=== PATIENT | male | born 1965 | race Hispanic/Latino ===

== ENCOUNTER 2025-05-25 10:16 | Emergency (ER) | payer BC ==
[~2025-05-25] VITALS: Ht 172.7 cm; Wt 101.6 kg
--- NOTE | 2025-05-25 10:32 | EKG ---
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
[2025-05-25 10:45] LABS: IMMATURE GRANULOCYTE ABSOLUTE 0.04 K/uL (0-1); NUCLEATED RED BLOOD CELLS 0.0 % (0.0-0.19); PLATELET COUNT (AUTO) 188 K/uL (130-400); RED BLOOD CELL COUNT(AUTO) 4.80 MIL/uL (4.50-6.20); RED CELL DISTRIBUTION WIDTH 11.9 % (11.0-15.5); WHITE BLOOD COUNT (AUTO) 5.4 K/uL (4.8-10.8)
[2025-05-25] MEDS: LACTATED RINGERS 1000ML 1,000 ML IV ONE (10:47)
[2025-05-25 10:57] LABS: CREATININE 1.0 mg/dL (0.5-1.3); GLOMERULAR FILTR. RATE CALC 86.0 mL/min (>90); GLUCOSE,RANDOM 108.0 mg/dL (70-105); SODIUM SERUM 138.0 mmol/L (136-145); UREA NITROGEN, BLOOD 14.0 mg/dL (7-18)
[2025-05-25 11:03] LABS: CREATINE KINASE, TOTAL 161.0 U/L (21-232)
--- NOTE | 2025-05-25 12:02 | HMCIMG ---
EXAM: CT Head Without IV contrast. CLINICAL HISTORY: dizzy TECHNIQUE: Axial computed tomography images of the head/brain without intravenous contrast. COMPARISON: None provided. FINDINGS: BRAIN: Prominence of cerebral sulci and ventricles suggestive of age related atrophic changes. Chronic small vessel ischaemic changesNo evidence of acute hemorrhage. No mass lesion. No CT evidence for acute territorial infarct. No midline shift or extra-axial collections. VENTRICLES: No hydrocephalus. ORBITS: The orbits are unremarkable. SINUSES AND MASTOIDS: The paranasal sinuses and mastoid air cells are clear. BONES: No fracture. SOFT TISSUES: Unremarkable. IMPRESSION: 1. No acute intracranial findings. /[place]
--- NOTE | 2025-05-25 12:58 | HMCIMG ---
EXAM: CR Chest, 1 View. CLINICAL HISTORY: dizzy COMPARISON: None provided. FINDINGS: LUNGS: The lungs show no infiltrate or other acute finding. PLEURAL SPACES: No evidence of pleural effusion or pneumothorax. MEDIASTINUM: Cardiac size and mediastinal contours within normal limits. BONES: No acute osseous abnormality. IMPRESSION: No acute cardiopulmonary pathology is evident. /[place]
[2025-05-25] MEDS ORDERED: MECL-244 PO (13:05)
--- NOTE | 2025-05-25 13:05 | ERN ---
General Chief Complaint: Dizzy/Light Headed Stated Complaint: DIZZINESS Time Seen by MD: 10:20 History of Present Illness Initial Comments 59-year-old male presents for dizziness. He reports the last night he felt like he was sweating and this morning he woke up feeling dizzy. He describes the dizziness as lightheadedness and "spinning" and "off balance." It increases with a sudden movements. It increases with standing. No headache. No focal neurologic deficits. He denies any chest pain shortness of breath. He has never had this before. No recent illness or infection. No tinnitus. Allergies: Coded Allergies: aspirin (Unverified Allergy, Unknown, 05/25/25) Past Medical History Past Medical History: HIV, Hypertension Past Surgical History: None ROS Dictation CONSTITUTIONAL: No chills, no fever, no weakness, no diaphoresis, no malaise. HEAD/FACE: No signs of trauma. EENT: No eye pain, no blurred vision, no tearing, no double vision, no ear pain, no ear discharge, no nose pain, no nasal congestion, no throat pain, no throat swelling, no mouth pain. RESPIRATORY: No cough, no orthopnea, no SOB, no stridor, no wheezing. CARDIOVASCULAR: No chest pain, no edema, no palpitations, no syncope. GASTROINTESTINAL/ABDOMINAL: No abdominal pain, no constipation, no diarrhea, no nausea, no vomiting. GENITOURINARY: No abnormal discharge, no dysuria, no frequent urination, no hematuria. No complaints of pain in the genitals. MUSCULOSKELETAL: No back pain, no gout, no joint pain, no joint swelling, no muscle pain, no muscle stiffness, no neck pain. INTEGUMENTARY: No change in color, no change in hair/nails, no dryness, no lesion, no lumps, no rash. NEUROLOGICAL/PSYCH: Dizziness HEMATOLOGIC/LYMPHATIC: Not anemic, no history of blood clots, no apparent bleeding, no bruising, glands not swollen. All Systems Negative, Except as Noted. Physical Exam Physical Exam Dictation VITAL SIGNS: Reviewed. GENERAL APPEARANCE: Alert, oriented x3, no acute distress. HEAD AND FACE: Non-traumatic. EYES: PERRL, pink conjunctivas, eyelid no trauma, anterior chamber clear. EARS: Pinnas intact and no signs of trauma or erythema. Ear canals clear and no discharge. TMs no erythema. NOSE: No discharge, no bleeding. OROPHARYNX: Mouth normal, teeth no caries, tongue pink. Pharynx clear, no erythema. Tonsils no exudates, no abscesses noted. Mucous membrane moist. NECK: Supple, non-tender, no thyromegaly, no masses, no JVD, no bruits. BREAST: Deferred. CHEST: No tenderness, no crepitus, no paradoxical movement, no retractions. LUNGS: Clear, well-ventilated, symmetric, no rales, no wheezing, no rhonchi, no stridor, good breath sounds bilaterally. HEART: Regular rate, regular rhythm, no murmur, no gallops. VASCULAR: No peripheral edema. ABDOMEN: Soft, positive bowel sounds, nondistended, no guarding, nontender, no rebound, no masses no hepatomegaly, no splenomegaly, no Mccall's sign, no maribell ias. RECTAL: Deferred. GENITAL: Deferred. NEUROLOGICAL: Normal speech, gross motor function intact, gross sensory function intact. MUSCULOSKELETAL: Neck nontender, full range of motion, back nontender, full range of motion. EXTREMITIES: Nontender, full range of motion. SKIN: Color pink, dry, no turgor, no rash, no lacerations, no abrasions, no contusions. LYMPHATICS: Deferred. Results Laboratory and Microbiology Lab and Micro Result Laboratory Tests Test 05/25/25 10:36 White Blood Count 5.4 K/uL (4.8-10.8) Red Blood Count 4.80 MIL/uL (4.50-6.20) Hemoglobin 15.7 g/dL (14.0-18.0) Hematocrit 45.1 % (42-54) Mean Corpuscular Volume 94.0 fL (79-99) Mean Corpuscular Hemoglobin 32.7 pg (27.0-33.0) Mean Corpuscular Hemoglobin Concent 34.8 g/dL (32.0-36.0) Red Cell Distribution Width 11.9 % (11.0-15.5) Platelet Count 188 K/uL (130-400) Mean Platelet Volume 10.5 fL (7.5-10.5) Immature Granulocyte % (Auto) 0.7 % (0-1) Neutrophils (%) (Auto) 46.3 % (40.0-77.0) Lymphocytes (%) (Auto) 43.6 % (21.0-51.0) Monocytes (%) (Auto) 7.0 % (3.0-13.0) Eosinophils (%) (Auto) 2.0 % (0.0-8.0) Basophils (%) (Auto) 0.4 % (0.0-5.0) Neutrophils # (Auto) 2.5 K/uL (1.8-7.7) Lymphocytes # (Auto) 2.4 K/uL (1.0-4.8) Monocytes # (Auto) 0.4 K/uL (0.1-1.0) Eosinophils # (Auto) 0.11 K/uL (0.00-0.70) Basophils # (Auto) 0.02 K/uL (0.00-0.20) Absolute Immature Granulocyte (auto 0.04 K/uL (0-1) Nucleated Red Blood Cells 0.0 % (0.0-0.19) Sodium Level 138 mmol/L (136-145) Potassium Level 4.5 mmol/L (3.5-5.1) Chloride Level 104 mmol/L (101-111) Carbon Dioxide Level 29 mmol/L (21-32) Blood Urea Nitrogen 14 mg/dL (7-18) Creatinine 1.0 mg/dL (0.5-1.3) Glomerular Filtration Rate Calc 86 mL/min (>90) Random Glucose 108 mg/dL (70-105) H Total Calcium 8.8 mg/dL (8.5-10.1) Magnesium Level 1.90 mg/dL (1.80-2.40) Total Creatine Kinase 161 U/L (21-232) Troponin I High Sensitivity 5.1 ng/L (4-75) MDM CC: Dizziness/vertigo type symptoms beginning this morning. Lightheadedness. Historian: Patient Comorbidities: Hypertension, HIV positive with undetectable viral load on anti- retroviral therapy Limitations by social determinants of health: None Differential diagnosis: Dehydration, electrolyte abnormality, ACS, vertigo, stroke, arrhythmia, other Vital signs: Hypertension 159/82 otherwise stable. EKG: Sinus rhythm, rate 60, normal axis, good R-wave progression, intervals stable no STEMI. Independently interpreted by me. NIHSS of 0. Normal clinical exam. ENT exam is normal. He does get dizzy with moving his eyes from [id number]. Labs: CBC normal, BMP normal, mag normal, CK normal, troponin normal CT head w/o contrast: no acute abnormality Based on clinical presentation, low suspician of stroke, sepsis, or major/life threatening condition. Symptoms most consistent with BPPV. Treatment in ED: IVF, oral meclizine. Re-evaluation: Symptoms improved. Plan: DC to PCP f/u, prescription for meclizine. ED Course Orders Procedure Category Date Status Time Lactated Ringers PHA 05/25/25 Complete 1000ml (Lactated 10:30 Cardiac Panel LAB 05/25/25 Complete 10:29 Cbc With Differential LAB 05/25/25 Complete 10:29 Basic Metabolic Panel LAB 05/25/25 Complete 10:29 Magnesium LAB 05/25/25 Complete 10:29 12 Lead Ekg Tracing- EKG 05/25/25 Resulted Technical 10:29 Chest 1vw RAD 05/25/25 Resulted 10:29 Ct Head/Brain W/O CT 05/25/25 Resulted Contrast 10:29 Meclizine Hcl 25 Mg PHA 05/25/25 Complete (Antivert 25 Mg) 10:30 Current Medications Medications (Trade) Dose Ordered Sig/Bayron Route PRN Reason Start Time Stop Time Status Last Admin Dose Admin Lactated Ringer's 1,000 ml @ 0 mls/hr ONCE ONCE IV 05/25/25 10:30 05/25/25 10:32 DC 05/25/25 10:47 Meclizine HCl (ANTIvert 25 mg) 25 mg ONCE ONCE PO 05/25/25 10:30 05/25/25 10:32 DC 05/25/25 10:47 Vital Signs Date Time Temp Pulse Resp B/P (MAP) Pulse Ox O2 Delivery O2 Flow Rate FiO2 05/25/25 11:58 98.1 53 20 138/80 98 Room Air* 0 21 05/25/25 10:41 97.5 85 15 158/81 96 Room Air* 0 21 05/25/25 10:17 98.1 61 16 159/82 97 Room Air DX & DISP Disposition: Discharge Departure Impression: Primary Impression: Benign paroxysmal positional vertigo Condition: Stable Scripts Meclizine HCl (Motion Sickness) 25 Mg Tablet 1 TAB PO TID for dizziness for 10 Days, #30 TAB 0 Refills Prov: CARMEN YANG DO 8/23/25 Additional Instructions: Your symptoms are most consistent with a benign positional vertigo. This is often caused by inner ear inflammation. It will usually resolve on its own. You received IV fluids and meclizine here in the ER. You had a CT scan of your brain, an EKG, chest x-ray, and lab work which were all unremarkable. I have prescribed meclizine. You can take one tablet by mouth 3 times a day as needed for dizziness. Move slowly when changing positions, such as getting out of bed. Quick movements can trigger vertigo attacks. We were feeling dizzy, you can try the Enrike maneuver. This is a positioning maneuver that has been shown to reduce vertigo symptoms. Watch a YouTube video on how to perform the Enrike maneuver. As we discussed, if you continue with symptoms with the in a week or so, I recommend he follow up with the primary doctor. You may need a referral to an ENT or other specialist for further studies. Please return to the emergency department if you have any concerns. Referrals: HERMELINDA LAO MD (PCP) CARMEN YANG DO May 25, 2025 13:05
[2025-05-25 13:26] VITALS: BP 124/70; PULSE 51; RESP 12; TEMP 98; O2SAT 96
--- NOTE | 2025-05-25 13:26 | NUR ---
DC PATIENT WAS DC'D BY DR TREY Hood DC'D PATIENTS IV WITH CATH STILL INTACT AND APPLIED 2X2 GAUZE WITH COBAN I EXPLAINED TO PATIENT TO FOLLOW UP WITH PCP, PROVIDED INFO BASED ON DIAGNOSIS AND ANSWERED ANY FOLLOW UP QUESTIONS PATIENT WAS WHEELCHAIRED OUT OF ED BY ME, NO COMPLICATIONS
== END 2025-05-25 13:18 | disposition home or self-care (01) ==
LOC: EDH 10:16
DX: H81.10 Benign paroxysmal vertigo, unspecified ear (principal); I10 Essential (primary) hypertension; Z21 Asymptomatic human immunodeficiency virus [HIV] infection status; Z88.6 Allergy status to analgesic agent
CPT/HCPCS: 99284; 96360; 70450; 71045; 96361; 82550; 83735; 84484; 80048; 85025; 36415; 93005; J7120